=== PATIENT | male | born 1975 | race African-American/Black ===

== ENCOUNTER 2023-11-30 07:48 | Day surgery (SDC) | payer OTHER, SELFPAY ==
[2023-11-26 13:15] VITALS: BMI 27.7
[2023-11-30 08:49] VITALS: BP 139/100; PULSE 80; RESP 18; TEMP 36.6; O2SAT 98; BMI 27.9
[2023-11-30 09:02] VITALS: BP 142/98
--- NOTE | 2023-11-30 09:20 | HO.ANESPROP2 ---
HPI - Anesthesia Eval Consult details Narrative: 48 yo male patient for Colonoscopy [facility] Past Medical History Medical History HTN (hypertension) Functional capacity: wheelchair bound Family History Family history of problems with anesthesia: No Surgical History Surgical History H/O tooth extraction No pertinent past surgical history History of Problems with Anesthesia: No Social History Social History (Updated 11/30/23 @ 09:48 by Imelda Reyes MD) Alcohol intake: current Alcohol intake frequency: a few times a week Comment: Social Patient Tobacco Use Status: Former Tobacco user Tobacco use type: Cigarette Meds Allergies Allergy/AdvReac Type Severity Reaction Status Date / Time No Known Allergies Allergy Verified 11/26/23 13:12 Active Medications: Current Medications Sodium Biphosphate/Sodium Phosphate (Sodium Phosphate,[place]-Dibasic 133 Ml Enema) 133 ml [place] ONCE PRN PRN Reason: Poor Colonoscopy Prep Results Home Medications ?Medication ?Instructions ?Recorded ?Confirmed ?Last Taken ?Type amlodipine 10 mg tablet 10 mg PO DAILY 11/26/23 11/26/23 11/29/23 History loratadine 10 mg tablet 10 mg PO DAILY 11/30/23 11/29/23 History Exam Height,Weight and Vital Signs: Height 6 ft 3 in Weight 101.3 kg Last Vital Signs Temp 98 F 11/30/23 08:49 Pulse 80 11/30/23 08:49 Resp 18 11/30/23 08:49 BP 142/98 H 11/30/23 09:02 Pulse Ox 98 11/30/23 08:49 O2 Del Method Room Air 11/30/23 08:49 Airway Mallampati Class: III TM Dist: >3cm Neck ROM: Full Loose/Missing/Broken Teeth: Yes (Some extractions. Denies broken or loose teeth) Heart: RRR Lungs: CTAB Assessment and Plan Assessment Anesthesia Assessment: Anesthesia Plan Discussed and Chart Reviewed Final Anesthetic Review Family History of Problems with Anesthesia: No History of Problems with Anesthesia: No NPO: Yes ASA Class: II Final Preanesthetic Review: No Changes in Pt Med Stat, Meds/Allgs Chart Reviewed, Consent Obtained/Reviewed and Anes Risks/Benef Reviewed Patient Risk: Low Procedure Risk: Low Assessment/Block/Sedation in SS: Assess/Block/Sedation-SS Anesthetic Plan Anesthetic Plan: TIVA Disposition: Standard PACU
--- NOTE | 2023-11-30 10:39 | P.BOP_ITS ---
Brief Operative Note Date of Service: 11/30/23 Pre-op diagnosis: Screening Post-op diagnosis: other (Mild diverticulosis) Procedure: Colonoscopy to the cecum and TI Surgeon: Michael Falcon MD Anesthesia: MAC Was an Security Site Supervisor used for this Procedure?: No Estimated blood loss (mL): 0 Pathology: none sent Condition: stable Disposition: PACU
[2023-11-30 10:40] VITALS: BP 118/70; PULSE 77; RESP 16; TEMP 36.1; O2SAT 98
[2023-11-30 10:55] VITALS: BP 140/96; PULSE 78; RESP 14; TEMP 36.1; O2SAT 100
--- NOTE | 2023-11-30 11:17 | OP_ITS ---
DATE OF SERVICE: 11/30/2023 SURGEON: Michael Falcon MD INDICATIONS: The patient presents for evaluation of colorectal cancer screening. Full consent has been obtained from him for this, including risks of bleeding and perforation. PREOPERATIVE DIAGNOSIS: Colorectal cancer screening. POSTOPERATIVE DIAGNOSIS: PROCEDURE PERFORMED: Colonoscopy to cecum and terminal ileum. ESTIMATED BLOOD LOSS: COMPLICATIONS: ANESTHESIA: Medication used, monitored anesthesia care. ASSISTANTS: SPECIMENS: POSTOPERATIVE DIAGNOSES: Colorectal cancer screening, mild sigmoid diverticulosis, internal hemorrhoids. DESCRIPTION OF PROCEDURE: The patient was placed in the left lateral decubitus position. The digital rectal exam revealed no abnormalities. The Olympus video-pediatric colonoscope was entered into the rectum and advanced easily to the cecum. Once in the cecum, I did identify normal-appearing cecal pouch with appendiceal orifice and a normal-appearing ileocecal valve. The terminal ileum was cannulated and appeared normal. The scope was withdrawn back in the colon. The entire cecum and ileocecal valve appeared normal. The scope was slowly withdrawn assessing all mucosal surfaces carefully. Preparation became excellent throughout the colon after a lot of irrigation and suctioning. I did not visualize any sign of polyps, colitis, nor angiodysplasia. There was a mild amount of sigmoid diverticulosis. In the rectum, scope was retroflexed visualizing some internal hemorrhoids, but no other pathology. The rectal mucosa appeared normal. Scope was straightened and withdrawn from the patient. He tolerated the procedure well and was returned to the recovery area in stable condition. IMPRESSION: 1. Mild sigmoid diverticulosis. 2. Internal hemorrhoids. PLAN: Given the negative exam and negative family history, I would recommend a followup coloscopy in 10 years for screening. He will otherwise see me on a p.r.n. basis. MD PARTH Snyder/IRVIN / [id number]
== END 2023-11-30 11:09 | disposition home or self-care (01) ==
PROVIDERS: PCP Nurse Practitioner Family; Visit Provider Internal Medicine
PROC: 0DJD8ZZ Inspection of Lower Intestinal Tract, Via Natural or Artificial Opening Endoscopic (ICD-10-PCS; CPT 45378; principal; 2023-11-30 09:40)
DX: Z12.11 Encounter for screening for malignant neoplasm of colon (principal); K57.30 Diverticulosis of large intestine without perforation or abscess without bleeding; K64.8 Other hemorrhoids; I10 Essential (primary) hypertension
CPT/HCPCS: 45378; J2704